=== PATIENT | male | born 1995 ===

== ENCOUNTER 2021-02-05 23:54 | Emergency (ER) | payer OTHER ==
[2021-02-06] MEDS ORDERED: Sodium Chloride 0.9% 10 ML Syringe FLUSH PRN (00:42)
[2021-02-06] MEDS ORDERED: Lactated Ringers 1,000 ML IV ONE ×2 (00:43→06:38)
[2021-02-06] MEDS ORDERED: Ondansetron 4 MG/2 ML SDV IVPUSH ONE (00:56)
[2021-02-06] MEDS ORDERED: diphenhydrAMINE 50 MG/ML SDV IVPUSH ONE (00:56)
--- NOTE | 2021-02-06 00:59 | EDM.PDOC ---
ED HPI GENERAL MEDICAL PROBLEM - General Chief Complaint: Gastrointestinal Problem Stated Complaint: THROWING UP DEHIDRATED Time Seen by Provider: 02/06/21 00:30 Source of Information: Reports: Patient History Limitations: Reports: No Limitations - History of Present Illness INITIAL COMMENTS - FREE TEXT/NARRATIVE: Patient comes emergency department on his own from home today with complaints of nausea vomiting body aches. This patient does exercise on the daily basis. He is currently working to get into the [employer]. He runs about 3 miles to 3.5 miles a day. Today while he was out running he ran 4 miles today once he got back home he started vomiting and has vomited multiple times about a dozen times at home. He has been unable to keep anything down at home. He has not had any diarrhea. He felt fine prior to his exercise today. He has no fever no chills. No chest pain or shortness of breath or difficulty breathing. No syncope. He does complain of generalized abdominal cramping primarily when he throws up. No specific pain anywhere. No hematuria dysuria or urinary frequency. No black or tarry stools. No diarrhea. Does complain of generalized myalgias and he has concerns that he is severely dehydrated. No Covid exposure no Covid symptoms. - Related Data Allergies Allergy/AdvReac Type Severity Reaction Status Date / Time No Known Drug Allergies Allergy Mild Other Verified 02/06/21 00:30 Home Meds: Home Meds . [No Known Home Meds] 02/06/21 [History] Past Medical History - Past Health History Medical/Surgical History: Denies Medical/Surgical History Social & Family History - Tobacco Use Tobacco Use Status *Q: Never Tobacco User Second Hand Smoke Exposure: No - Caffeine Use Caffeine Use: Reports: Coffee, Soda - Recreational Drug Use Recreational Drug Use: No ED ROS GENERAL - Review of Systems Review Of Systems: Comprehensive ROS is negative, except as noted in HPI. ED EXAM, GI/ABD - Physical Exam Exam: See Below Exam Limited By: No Limitations General Appearance: Alert, WD/WN, No Apparent Distress Eyes: Bilateral: EOMI Ears: Normal External Exam, Normal Canal, Normal TMs Nose: Normal Inspection, Normal Mucosa Throat/Mouth: Normal Teeth, Normal Gums, Normal Oropharynx, Normal Voice. No: Normal Inspection (Oral mucosa is quite dry), Normal Lips (Lips are dried and cracked) Head: Atraumatic, Normocephalic Neck: Normal Inspection, Supple, Non-Tender Respiratory/Chest: No Respiratory Distress, Lungs Clear, Normal Breath Sounds, No Accessory Muscle Use, Chest Non-Tender Cardiovascular: Normal Peripheral Pulses, Regular Rate, Rhythm GI/Abdominal Exam: Normal Bowel Sounds, Soft, No Distention, Tender (He has gene ralized tenderness throughout his abdomen. Without guarding or rebound.) (Male) Exam: Deferred Rectal (Males) Exam: Deferred Back Exam: Normal Inspection, Full Range of Motion Extremities: Normal Inspection, Normal Range of Motion, Non-Tender, No Pedal Edema, Normal Capillary Refill Neurological: Alert, Oriented, Normal Cognition, No Motor/Sensory Deficits Psychiatric: Normal Affect, Normal Mood Skin Exam: Warm, Dry, Intact, Normal Color, No Rash Course - Vital Signs Last Recorded V/S: Last Vital Signs Temp 99.9 F 02/06/21 07:55 Pulse 100 02/06/21 07:55 Resp 16 02/06/21 07:55 BP 112/55 L 02/06/21 07:55 Pulse Ox 97 02/06/21 07:55 - Orders/Labs/Meds Orders: Active Orders 24 hr Category Date Time Status Peripheral IV Insertion Adult [OM.PC] Stat Oth 02/06/21 00:38 Ordered Labs: Laboratory Tests 02/06/21 02/06/21 02/06/21 Range/Units 00:56 00:56 00:56 WBC 9.7 (5.0-10.0) 10^3/uL RBC 6.15 (4.6-6.2) 10^6/uL Hgb 17.7 (14.0-18.0) g/dL Hct 50.6 (40.0-54.0) % MCV 82.3 (80-100) fL MCH 28.8 (27.0-34.0) pg MCHC 35.0 (33.0-35.0) g/dL Plt Count 182 (150-450) 10^3/uL Neut % (Auto) 86.9 H (42.2-75.2) % Lymph % (Auto) 4.6 L (20.5-50.1) % Hanson % (Auto) 8.2 H (2-8) % Eos % (Auto) 0.1 L (1.0-3.0) % Baso % (Auto) 0.2 (0.0-1.0) % Sodium 139 (136-145) mmol/L Potassium 4.0 (3.5-5.1) mmol/L Chloride 101 (98-107) mmol/L Carbon Dioxide 22 (21-32) mmol/L Anion Gap 20.0 H (7-13) mEq/L BUN 18 (7-18) mg/dL Creatinine 1.34 H (0.70-1.30) mg/dL Est Cr Clr Drug Dosing 86.26 mL/min Estimated GFR (MDRD) > 60 BUN/Creatinine Ratio 13.4 (No establ ref range) Glucose 122 H (70-99) mg/dL Calcium 9.2 (8.5-10.1) mg/dL Magnesium 1.8 (1.8-2.4) mg/dL Total Bilirubin 1.4 H (0.2-1.0) mg/dL AST 41 H (15-37) U/L ALT 64 H (16-63) U/L Alkaline Phosphatase 66 (46-116) U/L Creatine Kinase 691 H (39-308) U/L Total Protein 8.7 H (6.4-8.2) g/dL Albumin 4.9 (3.4-5.0) g/dL Globulin 3.8 Albumin/Globulin Ratio 1.3 Lipase 63 L (73-393) U/L Urine Color (YELLOW) Urine Appearance (CLEAR) Urine pH (5.0-9.0) Ur Specific Jackson (1.005-1.030) Urine Protein (NEGATIVE) Urine Glucose (UA) (NEGATIVE) Urine Ketones (NEGATIVE) Urine Occult Blood (NEGATIVE) Urine Nitrite (NEGATIVE) Urine Bilirubin (NEGATIVE) Urine Urobilinogen (0.2-1.0) mg/dL Ur Leukocyte Esterase (NEGATIVE) Urine RBC /HPF Urine WBC (0-5/HPF) /HPF Ur Epithelial Cells (NOT SEEN) /HPF Amorphous Sediment (NOT SEEN) /HPF Urine Bacteria (0-FEW/HPF) /HPF Urine Mucus (NOT SEEN) /LPF 02/06/21 02/06/21 02/06/21 Range/Units 03:19 05:30 05:30 WBC (5.0-10.0) 10^3/uL RBC (4.6-6.2) 10^6/uL Hgb (14.0-18.0) g/dL Hct (40.0-54.0) % MCV (80-100) fL MCH (27.0-34.0) pg MCHC (33.0-35.0) g/dL Plt Count (150-450) 10^3/uL Neut % (Auto) (42.2-75.2) % Lymph % (Auto) (20.5-50.1) % Hanson % (Auto) (2-8) % Eos % (Auto) (1.0-3.0) % Baso % (Auto) (0.0-1.0) % Sodium 139 (136-145) mmol/L Potassium 3.7 (3.5-5.1) mmol/L Chloride 104 (98-107) mmol/L Carbon Dioxide 23 (21-32) mmol/L Anion Gap 15.7 H (7-13) mEq/L BUN 17 (7-18) mg/dL Creatinine 1.09 (0.70-1.30) mg/dL Est Cr Clr Drug Dosing 106.04 mL/min Estimated GFR (MDRD) > 60 BUN/Creatinine Ratio 15.6 (No establ ref range) Glucose 120 H (70-99) mg/dL Calcium 8.3 L (8.5-10.1) mg/dL Magnesium (1.8-2.4) mg/dL Total Bilirubin 1.2 H (0.2-1.0) mg/dL AST 32 (15-37) U/L ALT 53 (16-63) U/L Alkaline Phosphatase 53 (46-116) U/L Creatine Kinase 549 H (39-308) U/L Total Protein 7.0 (6.4-8.2) g/dL Albumin 3.8 (3.4-5.0) g/dL Globulin 3.2 Albumin/Globulin Ratio 1.2 Lipase (73-393) U/L Urine Color Dark yellow (YELLOW) Urine Appearance Slightly cloudy (CLEAR) Urine pH 5.5 (5.0-9.0) Ur Specific Jackson >= 1.030 (1.005-1.030) Urine Protein Trace H (NEGATIVE) Urine Glucose (UA) Negative (NEGATIVE) Urine Ketones 80 H (NEGATIVE) Urine Occult Blood Negative (NEGATIVE) Urine Nitrite Negative (NEGATIVE) Urine Bilirubin Small H (NEGATIVE) Urine Urobilinogen 0.2 (0.2-1.0) mg/dL Ur Leukocyte Esterase Negative (NEGATIVE) Urine RBC 0-5 /HPF Urine WBC 0-5 (0-5/HPF) /HPF Ur Epithelial Cells Rare (NOT SEEN) /HPF Amorphous Sediment Few (NOT SEEN) /HPF Urine Bacteria Rare (0-FEW/HPF) /HPF Urine Mucus Moderate H (NOT SEEN) /LPF Meds: Medications Discontinued Medications Generic Name Dose Route Start Last Admin Trade Name Freq PRN Reason Stop Dose Admin Diphenhydramine HCl 25 mg 02/06/21 00:56 02/06/21 01:04 Diphenhydramine 50 Mg/Ml Sdv IVPUSH 02/06/21 00:57 25 mg ONETIME ONE Administration Lactated Ringer's 1,000 mls @ 1,000 mls/hr 02/06/21 00:43 02/06/21 00:59 Ringers, Lactated IV 02/06/21 01:42 1,000 mls/hr .BOLUS ONE Administration Lactated Ringer's 1,000 mls @ 200 mls/hr 02/06/21 02:00 02/06/21 02:06 Ringers, Lactated IV 200 mls/hr ASDIRECTED SHERYL Administration Lactated Ringer's 1,000 mls @ 999 mls/hr 02/06/21 06:38 02/06/21 06:50 Ringers, Lactated IV 02/06/21 07:38 999 mls/hr ONETIME ONE Administration Ondansetron HCl 4 mg 02/06/21 00:56 02/06/21 01:04 Ondansetron 4 Mg/2 Ml Sdv IVPUSH 02/06/21 00:57 4 mg ONETIME ONE Administration Sodium Chloride 10 ml 02/06/21 00:42 02/06/21 00:59 Sodium Chloride 0.9% 10 Ml Syringe FLUSH 10 ml ASDIRECTED PRN Administration Keep Vein Open - Re-Assessments/Exams Free Text/Narrative Re-Assessment/Exam: Initially the patient was given an IV of LR 1 L wide open. Zofran 4 mg IV push and Benadryl 25 mg IV push. Initial labs show white blood cell count of 9.7 hemoglobin 17.7 platelet count of 189. CMP with an anion gap of 20 creatinine of 1.3 and a BUN of 18. Magnesium is normal at 1.8. T bili at 1.4 AST 41 ALT 64. Creatinine kinase 691. Lipase normal at 63. The patient felt quite a bit better after the above therapy. His nausea has resolved. He is resting much more comfortably. He is able to take some oral fluids. Clearly is in the presence of dehydration and I also wonder if he has a little bit of a viral gastroenteritis as well to with his generalized abdominal cramping that he has. He has no focal tenderness. There is just a small amount of creatinine kinase elevation in his urine sample does not show any signs of blood in it. We will hold has an extended stay ER give him another liter bolus and then 200 mils an hour and repeat his labs in 4 hours. He was comfortable with this plan and he was sent to the floor. Approximately 4 hours later the patient is resting comfortably in bed. He has had no nausea no vomiting. His abdominal cramping is almost completely resolved. It was consistent before but has completely resolved. He did have 1 diarrheal stool while he is here. He is still semifebrile at 100.0. He has no chills or body aches. He does feel quite a bit better. His creatinine kinase is starting to go down although there was a miscommunication in the orders and the patient did not receive the second liter bolus and he only had 200 mils an hour. His creatinine is improved back to normal as well as his liver enzymes I think all of these are due to dehydration overexertion as well as gastroenteritis. He does feel quite a bit better and he is able to tolerate oral fluids and simple solids. We will give him the other liter of LR discharge him home with Margareth. Stay away from physical exertion. Diet slowly advance as tolerated stay away from dairy. He is comfortable with this plan his questions were answered. Departure - Departure Time of Disposition: 07:00 Disposition: Home, Self-Care 01 Clinical Impression: MERE (acute kidney injury), Elevated CPK, Gastroenteritis Heat exhaustion Qualifiers: Encounter type: initial encounter Qualified Code(s): T67.5XXA - Heat exhaustion, unspecified, initial encounter - Discharge Information *PRESCRIPTION DRUG MONITORING PROGRAM REVIEWED*: Not Applicable *COPY OF PRESCRIPTION DRUG MONITORING REPORT IN PATIENT MATT: Not Applicable Instructions: Ondansetron oral dissolving tablet, Viral Gastroenteritis, Adult, [id number], Nausea and Vomiting, Adult, [id number], Dehydration, Adult, [id number] Referrals: PCP,Dannieobamaury [Primary Care Provider] - Forms: ED Department Discharge Additional Instructions: Home rest today. No physical activity until symptom feel. Keep cool Lots of fluids today especially gatorade and or powerade. Diet as tolerated. Slowly advance as tolerated. Simple foods. No dairy products until nausea vomiting diarrhea free for 48hrs except for yogurt. Zofran as needed for nausea vomiting. RX given to the patient. Return to the ED if new or worsening symptoms. Recheck with primary care in the next 4-6 days sooner if worse. Sepsis Event Note (ED) - Evaluation Sepsis Screening Result: No Definite Risk - My Orders Last 24 Hours: My Active Orders 02/06/21 00:38 Peripheral IV Insertion Adult [OM.PC] Stat - Assessment/Plan Last 24 Hours: My Active Orders 02/06/21 00:38 Peripheral IV Insertion Adult [OM.PC] Stat
[2021-02-06 01:22] LABS: CHLORIDE,CL 101 mmol/L (98-107); SODIUM,NA 139 mmol/L (136-145)
[2021-02-06] MEDS ORDERED: Lactated Ringers 1,000 ML IV SCH (02:00)
[2021-02-06 05:55] LABS: ANION GAP 15.7 mEq/L (7-13); CHLORIDE,CL 104 mmol/L (98-107); SODIUM,NA 139 mmol/L (136-145)
[2021-02-06] MEDS ORDERED: Sodium Chloride 0.9% 1,000 ML IV ONE (06:33)
== END 2021-02-06 08:35 | disposition home or self-care (01) ==
LOC: DL.ED 23:54
DX: T67.5XXA Heat exhaustion, unspecified, initial encounter (principal); K52.9 Noninfective gastroenteritis and colitis, unspecified; N17.9 Acute kidney failure, unspecified; R74.8 Abnormal levels of other serum enzymes
CPT/HCPCS: 36415; 80053; 81001; 82550; 83690; 83735; 85025; 96361; 96374; 96375; 99284; J1200; J2405; J7120; 99283